=== PATIENT | male | born 1955 | race African-American/Black ===

== ENCOUNTER 2017-02-06 15:29 | Emergency (ER) | payer MEDICAID, OTHER ==
[~2017-02-06] VITALS: Ht 170.2 cm; Wt 70.0 kg
[2017-02-06 23:30] VITALS: BP 118/72
== END 2017-02-06 23:47 | disposition home or self-care (01) ==
LOC: ER 15:46
DX: S82.832A Other fracture of upper and lower end of left fibula, initial encounter for closed fracture (principal); S09.90XA Unspecified injury of head, initial encounter; M25.562 Pain in left knee; I10 Essential (primary) hypertension; J45.909 Unspecified asthma, uncomplicated; F12.10 Cannabis abuse, uncomplicated; W05.0XXA Fall from non-moving wheelchair, initial encounter; Y93.89 Activity, other specified; Y92.89 Other specified places as the place of occurrence of the external cause; Y99.8 Other external cause status
CPT/HCPCS: 29515; 70450; 73562; 73610; 99284; Z7610

== ENCOUNTER 2017-04-28 04:44 | Emergency (ER) | payer MEDICAID ==
[~2017-04-28] VITALS: Ht 182.9 cm; Wt 95.0 kg
[~2017-04-28 04:44] MED LIST: AMLO10TA80 PO; LACT10SO7 PO
[2017-04-28] MEDS ORDERED: ACETAMINOPHEN 325MG TABLET PO ONE (08:30)
[2017-04-28 10:12] LABS: CLARITY URINE CLEAR (CLEAR); COLOR URINE DARK YELLOW (YELLOW); KETONES URINE TRACE (NEGATIVE); LEUKOCYTE ESTERASE URINE NEGATIVE (NEGATIVE); NITRITE URINE NEGATIVE (NEGATIVE); OCCULT BLOOD URINE NEGATIVE (NEGATIVE); PH URINE 5.5 (4.5-8.0); PROTEIN URINE NEGATIVE (NEGATIVE)
[2017-04-28 10:37] LABS: *AMPHETAMINES SCREEN URINE NEGATIVE (NEGATIVE); *BARBITURATES SCREEN URINE NEGATIVE (NEGATIVE); *BENZODIAZEPINES SCREEN URINE NEGATIVE (NEGATIVE); *COCAINE SCREEN URINE PRESUMTIVE POSITIVE (NEGATIVE); CANNABINOID URINE SCREEN NEGATIVE (NEGATIVE); METHADONE URINE SCREEN NEGATIVE (NEGATIVE); OPIATES URINE SCREEN NEGATIVE (NEGATIVE); PHENCYCLIDINE URINE SCREEN NEGATIVE (NEGATIVE)
[2017-04-28 18:03] VITALS: BP 109/49
== END 2017-04-28 18:05 | disposition home or self-care (01) ==
LOC: ER 04:44
DX: M79.1 Myalgia (principal); F10.20 Alcohol dependence, uncomplicated; Y90.0 Blood alcohol level of less than 20 mg/100 ml; E11.9 Type 2 diabetes mellitus without complications; I10 Essential (primary) hypertension; J45.909 Unspecified asthma, uncomplicated
CPT/HCPCS: 36415; 80305; 81003; 99284; G0482

== ENCOUNTER 2017-05-09 14:12 | Emergency (ER) | payer MEDICAID ==
[~2017-05-09] VITALS: Ht 172.7 cm; Wt 90.0 kg
[2017-05-09 16:08] VITALS: BP 129/74
[2017-05-09] MEDS ORDERED: ALBUTEROL (0.083%) 2.5MG/3ML NEB HHN STA (17:57)
== END 2017-05-09 20:13 | disposition home or self-care (01) ==
LOC: ER 14:39
DX: J06.9 Acute upper respiratory infection, unspecified (principal); I10 Essential (primary) hypertension; J45.909 Unspecified asthma, uncomplicated; Z59.0 Homelessness
CPT/HCPCS: 71045; 94640; 99283; J7611; Z7610

== ENCOUNTER 2017-11-27 18:10 | Inpatient (IN) | payer MEDICAID ==
[~2017-11-27] VITALS: Ht 182.9 cm; Wt 121.3 kg
[2017-11-27] MEDS ORDERED: KETOROLAC 30MG/ML VIAL IV STA (19:20)
[2017-11-27] MEDS ORDERED: ONDANSETRON HCL 4MG/2ML INJ IV STA (19:20)
[2017-11-27] MEDS ORDERED: MORPHINE SULFATE 4 MG/ML CPJ (NOT FOR IM USE) IV STA (19:20)
[2017-11-27] MEDS ORDERED: SODIUM CHLORIDE 0.9% 1,000 ML IV ONE (19:20)
[2017-11-27 19:44] LABS: BASOPHILS % 1.3 % (0.0-2.0); HEMATOCRIT. 32.6 % (42.0-52.0); HEMOGLOBIN. 11.3 g/dL (14.0-18.0); LYMPHOCYTES % 19.3 % (20.0-50.0); MEAN CORPUSCULAR HEMOGLOBIN 37.6 pg (28.0-32.0); MEAN CORPUSCULAR VOLUME 108.6 fL (80.0-94.0); MEAN PLATELET VOLUME 8.9 fl (7.4-10.4); MONOCYTES % 11.8 % (2.0-8.0); NEUTROPHILS % 65.6 % (40.0-76.0); RED CELL DISTRIBUTION WIDTH 19.9 % (11.6-14.6)
[2017-11-27 19:50] LABS: CHLORIDE 101 mEq/L (98-107)
[2017-11-27 19:52] LABS: INR 2.2; PARTIAL THROMBOPLASTIN TIME 43.3 sec (23.4-31.0); PROTHROMBIN TIME 22.1 sec (9.1-11.1)
[2017-11-27 19:55] LABS: ETHANOL BLOOD 32 mg/dL
[2017-11-27 20:08] LABS: PLATELET 74 x1000/uL (130-400)
[2017-11-28] VITALS (9 sets, daily range): BP systolic 110–148; BP diastolic 55–85
[2017-11-28 00:55] LABS: CLARITY URINE CLEAR (CLEAR); COLOR URINE DARK YELLOW (YELLOW); KETONES URINE TRACE (NEGATIVE); LEUKOCYTE ESTERASE URINE TRACE (NEGATIVE); NITRITE URINE POSITIVE (NEGATIVE); OCCULT BLOOD URINE NEGATIVE (NEGATIVE); PROTEIN URINE NEGATIVE (NEGATIVE); SPECIFIC GRAVITY URINE 1.026 (1.005-1.030)
[2017-11-28 01:07] LABS: CANNABINOID URINE SCREEN NEGATIVE (NEGATIVE); PHENCYCLIDINE URINE SCREEN NEGATIVE (NEGATIVE)
[2017-11-28 01:08] LABS: *AMPHETAMINES SCREEN URINE NEGATIVE (NEGATIVE); *BARBITURATES SCREEN URINE NEGATIVE (NEGATIVE); *COCAINE SCREEN URINE NEGATIVE (NEGATIVE); METHADONE URINE SCREEN NEGATIVE (NEGATIVE); OPIATES URINE SCREEN PRESUMTIVE POSITIVE (NEGATIVE)
[2017-11-28 01:14] LABS: *BENZODIAZEPINES SCREEN URINE NEGATIVE (NEGATIVE)
[2017-11-28] MEDS ORDERED: LORAZEPAM 2MG/ML CPJ IV PRN (05:00)
[2017-11-28] MEDS ORDERED: ACETAMINOPHEN 325MG TABLET PO PRN (05:00)
[2017-11-28] MEDS ORDERED: OMEPRAZOLE 20MG CAPSULE EXTENDED RELEASE PO SCH (07:10)
[2017-11-28] MEDS ORDERED: CLINDAMYCIN 600 MG in DEXTROSE 5% WATER 50 ML IV SCH (08:00)
[2017-11-28] MEDS: MULTIVITAMINS,THER W-MINERALS TABLET PO SCH (09:31)
[2017-11-28] MEDS: THIAMINE HCL 100MG TABLET PO SCH (09:31)
[2017-11-28] MEDS: FOLIC ACID/VITAMIN B COMP W-C TABLET PO SCH (09:31)
[2017-11-28] MEDS: FUROSEMIDE 40MG/4ML VIAL IVP SCH ×2 (09:31→21:11)
[2017-11-28] MEDS: SPIRONOLACTONE 100MG TABLET PO SCH (09:31)
[2017-11-28 10:51] LABS: HEMATOCRIT. 31.5 % (42.0-52.0); MEAN CORPUSCULAR HEMOGLOBIN 38.3 pg (28.0-32.0); MEAN CORPUSCULAR VOLUME 109.2 fL (80.0-94.0); RED BLOOD CELL COUNT 2.88 mill/uL (4.7-6.1); RED CELL DISTRIBUTION WIDTH 20.3 % (11.6-14.6)
[2017-11-28 13:11] LABS: PLATELET ESTIMATE DECREASED
[2017-11-28 13:13] LABS: PLATELET 80 x1000/uL (130-400)
[2017-11-28 13:46] LABS: CHLORIDE 103 mEq/L (98-107)
[2017-11-28] MEDS: CLINDAMYCIN 600MG PREMIX 50 ML IV SCH ×2 (15:51→21:11)
[2017-11-28 22:48] LABS: BG BASE EXCESS -9.2 mmol/L (-2.0-2.0); BG CARBOXYHEMOGLOBIN 0.9 % (0.5-1.5); BG DEOXYHEMOGLOBIN 4.2 % (0.0-5.0); BG FRACTION INSPIRED OXYGEN 28; BG HCO3 ACT 12.3 mmol/L (22.0-26.0); BG METHEMOGLOBIN 0.3 % (0.0-1.5); BG OXYGEN SATURATION 95.7 % (92.0-98.5); BG OXYHEMOGLOBIN 94.6 % (94.0-97.0); BG PCO2 17.5 mmHg (35.0-45.0); BG PH 7.464 (7.350-7.450); BG PO2 82.6 mmHg (75.0-100.0); BG SAMPLE SITE RIGHT RADIAL; BG TOTAL HEMOGLOBIN 11.4 g/dL (12.0-18.0); BG VENT MODE NASAL CANNULA
[2017-11-28] MEDS ORDERED: FAMOTIDINE 20MG/2ML VIAL IV SCH (23:00)
[2017-11-29] VITALS (73 sets, daily range): BP systolic 48–177; BP diastolic 23–106
[2017-11-29] MEDS ORDERED: CEFTRIAXONE 1 G PREMIX 50 ML IV SCH
[2017-11-29] MEDS: PANTOPRAZOLE 80 MG in SODIUM CHLORIDE 0.9% 100 ML IV SCH ×2 (00:06→09:34)
[2017-11-29] MEDS: IPRATROPIUM/ALBUTEROL 0.5-3(2.5)MG/3ML NEB HHN SCH ×5 (00:35→16:01)
[2017-11-29 01:46] LABS: AMMONIA 83 uMol/L (<32)
[2017-11-29] MEDS ORDERED: ACETAMINOPHEN 650MG SUPP PR PRN (04:00)
[2017-11-29 04:08] LABS: BG BASE EXCESS -18.9 mmol/L (-2.0-2.0); BG CARBOXYHEMOGLOBIN 0.2 % (0.5-1.5); BG DEOXYHEMOGLOBIN 0.4 % (0.0-5.0); BG FRACTION INSPIRED OXYGEN 100; BG HCO3 ACT 10.2 mmol/L (22.0-26.0); BG METHEMOGLOBIN 0.6 % (0.0-1.5); BG OXYGEN SATURATION 99.6 % (92.0-98.5); BG OXYHEMOGLOBIN 98.8 % (94.0-97.0); BG PCO2 35.7 mmHg (35.0-45.0); BG PH 7.073 (7.350-7.450); BG PO2 315.6 mmHg (75.0-100.0); BG SAMPLE SITE RIGHT RADIAL; BG TOTAL HEMOGLOBIN 11.5 g/dL (12.0-18.0); BG VENT MODE MASK - NRB
[2017-11-29] MEDS: LACTULOSE 20G/30ML UDC PO SCH ×2 (05:04→12:30)
[2017-11-29 05:11] LABS: BG BASE EXCESS -15.9 mmol/L (-2.0-2.0); BG CARBOXYHEMOGLOBIN 0.3 % (0.5-1.5); BG DEOXYHEMOGLOBIN 9.5 % (0.0-5.0); BG FRACTION INSPIRED OXYGEN 36; BG HCO3 ACT 11.5 mmol/L (22.0-26.0); BG METHEMOGLOBIN 0.5 % (0.0-1.5); BG OXYGEN SATURATION 90.4 % (92.0-98.5); BG OXYHEMOGLOBIN 89.7 % (94.0-97.0); BG PCO2 32.6 mmHg (35.0-45.0); BG PH 7.165 (7.350-7.450); BG SAMPLE SITE RIGHT RADIAL; BG TOTAL HEMOGLOBIN 10.3 g/dL (12.0-18.0); BG VENT MODE NASAL CANNULA
[2017-11-29] MEDS ORDERED: DEXTROSE 50% WATER 50ML SYRINGE IV ONE ×3 (05:11→14:07)
[2017-11-29] MEDS ORDERED: DEXTROSE 50% WATER 50ML SYRINGE IV PRN (05:15)
[2017-11-29] MEDS: SODIUM BICARBONATE 8.4% 1 MEQ/ML 50ML SYR IV SCH ×2 (05:41→05:43)
[2017-11-29] MEDS ORDERED: NOREPINEPHRINE 8 MG in DEXT 5% WATER 242 ML IV PRN (06:00)
[2017-11-29] MEDS: CLINDAMYCIN 600MG PREMIX 50 ML IV SCH ×2 (06:00→14:58)
[2017-11-29] MEDS: SODIUM BICARBONATE 100 MEQ in DEXTROSE 5% WATER 1,000 ML IV SCH ×3 (06:00→15:58)
[2017-11-29] MEDS ORDERED: LORAZEPAM 2MG/ML CPJ ONE (07:38)
[2017-11-29] MEDS ORDERED: PROPOFOL 10MG/ML 100ML 100 ML IV PRN (07:45)
[2017-11-29] MEDS ORDERED: LORAZEPAM 2MG/ML CPJ IV ONE (08:00)
[2017-11-29 08:22] LABS: BG BASE EXCESS -21.4 mmol/L (-2.0-2.0); BG CARBOXYHEMOGLOBIN 0.3 % (0.5-1.5); BG DEOXYHEMOGLOBIN 5.5 % (0.0-5.0); BG FRACTION INSPIRED OXYGEN 100; BG HCO3 ACT 10.3 mmol/L (22.0-26.0); BG METHEMOGLOBIN 0.1 % (0.0-1.5); BG OXYGEN SATURATION 94.5 % (92.0-98.5); BG OXYHEMOGLOBIN 94.1 % (94.0-97.0); BG PCO2 50.3 mmHg (35.0-45.0); BG SAMPLE SITE LEFT BRACHIAL; BG TIDAL VOLUME(mL) 600 mL; BG TOTAL HEMOGLOBIN 10.1 g/dL (12.0-18.0); BG VENT MODE VENT - A/C; BG VENT RATE 12 set
[2017-11-29] MEDS ORDERED: PHENYLEPHRINE 20 MG in DEXT 5% WATER 248 ML IV PRN (08:30)
[2017-11-29] MEDS: FUROSEMIDE 40MG/4ML VIAL IVP SCH (09:00)
[2017-11-29] MEDS ORDERED: SODIUM BICARBONATE 8.4% 1 MEQ/ML 50ML SYR IV NR (09:00)
[2017-11-29] MEDS: THIAMINE HCL 100MG TABLET PO SCH (09:00)
[2017-11-29] MEDS ORDERED: OCTREOTIDE 1,000 MCG in SODIUM CHLORIDE 0.9% 98 ML IV SCH (09:00)
[2017-11-29] MEDS: FOLIC ACID/VITAMIN B COMP W-C TABLET PO SCH (09:00)
[2017-11-29] MEDS: SPIRONOLACTONE 100MG TABLET PO SCH (09:00)
[2017-11-29] MEDS: MULTIVITAMINS,THER W-MINERALS TABLET PO SCH (09:00)
[2017-11-29] MEDS ORDERED: OCTREOTIDE ACETATE 50 MCG/ML 1ML IV NR (09:00)
[2017-11-29] MEDS: VASOPRESSIN 10 UNIT in SODIUM CHLORIDE 0.9% 99.5 ML IV PRN ×2 (09:40→13:48)
[2017-11-29 09:54] LABS: HEMOGLOBIN. 9.1 g/dL (14.0-18.0); MEAN CORPUSCULAR HEMOGLOBIN 38.9 pg (28.0-32.0); MEAN CORPUSCULAR VOLUME 115.1 fL (80.0-94.0); RED BLOOD CELL COUNT 2.34 mill/uL (4.7-6.1)
[2017-11-29 10:07] LABS: INR 3.7; PROTHROMBIN TIME 36.8 sec (9.1-11.1)
[2017-11-29 10:34] LABS: BG BASE EXCESS -14.8 mmol/L (-2.0-2.0); BG CARBOXYHEMOGLOBIN 0.2 % (0.5-1.5); BG DEOXYHEMOGLOBIN 6.3 % (0.0-5.0); BG FRACTION INSPIRED OXYGEN 100; BG HCO3 ACT 15.1 mmol/L (22.0-26.0); BG METHEMOGLOBIN 0.5 % (0.0-1.5); BG OXYGEN SATURATION 93.7 % (92.0-98.5); BG PCO2 54.1 mmHg (35.0-45.0); BG PH 7.064 (7.350-7.450); BG PO2 92.4 mmHg (75.0-100.0); BG SAMPLE SITE RIGHT BRACHIAL; BG TIDAL VOLUME(mL) 500 mL; BG TOTAL HEMOGLOBIN 10.4 g/dL (12.0-18.0); BG VENT MODE VENT - A/C; BG VENT RATE 24 set
[2017-11-29] MEDS: PHENYLEPHRINE 40 MG in DEXT 5% WATER 246 ML IV PRN ×2 (11:01→13:48)
[2017-11-29] MEDS ORDERED: NOREPINEPHRINE 32 MG in DEXT 5% WATER 468 ML IV PRN (11:30)
[2017-11-29] MEDS ORDERED: ALBUMIN HUMAN 25GM/100ML (25%) IV ONE (12:15)
[2017-11-29 12:42] LABS: PLATELET 19 x1000/uL (130-400)
[2017-11-29 12:47] LABS: NUCLEATED RED BLOOD CELLS 22 /100 WBC
[2017-11-29 12:50] LABS: PLATELET ESTIMATE DECREASED
[2017-11-29] MEDS ORDERED: SODIUM BICARBONATE 7.5% 0.9 MEQ/ML 50ML SYR IV ONE ×2 (13:35→14:07)
[2017-11-29] MEDS ORDERED: EPINEPHRINE 0.1MG/ML (1:10,000) 10ML SYR ONE ×2 (13:35→14:07)
[2017-11-29] MEDS ORDERED: CALCIUM CHLORIDE 1GM/10ML SYR IV ONE (14:07)
[2017-11-29 15:44] LABS: BG BASE EXCESS -16.4 mmol/L (-2.0-2.0); BG CARBOXYHEMOGLOBIN 0.4 % (0.5-1.5); BG DEOXYHEMOGLOBIN 26.3 % (0.0-5.0); BG FRACTION INSPIRED OXYGEN 100; BG HCO3 ACT 13.2 mmol/L (22.0-26.0); BG METHEMOGLOBIN 0.3 % (0.0-1.5); BG OXYGEN SATURATION 73.5 % (92.0-98.5); BG PCO2 48.6 mmHg (35.0-45.0); BG PH 7.051 (7.350-7.450); BG PO2 51.7 mmHg (75.0-100.0); BG SAMPLE SITE RIGHT BRACHIAL; BG TIDAL VOLUME(mL) 600 mL; BG TOTAL HEMOGLOBIN 8.9 g/dL (12.0-18.0); BG VENT MODE VENT - A/C; BG VENT RATE 24 set
== END 2017-11-29 16:30 | disposition expired | DRG 720 ==
LOC: ER 18:47 → 8WST 11-28 → EDBEDREQ 11-28 00:06 → EDBEDREQTM 11-28 00:06 → ENRESERV 11-28 02:28 → 3WST 11-29 02:57 → MICUSO 11-29 07:10
PROVIDERS: ADMIT Internal Medicine; ATTEND Internal Medicine
PROC: 5A12012 Performance of Cardiac Output, Single, Manual (ICD-10-PCS; principal; 2017-11-28)
PROC: 05H633Z Insertion of Infusion Device into Left Subclavian Vein, Percutaneous Approach (ICD-10-PCS; 2017-11-29)
PROC: B547ZZA Ultrasonography of Left Subclavian Vein, Guidance (ICD-10-PCS; 2017-11-29)
DX: A41.50 Gram-negative sepsis, unspecified (principal); J96.00 Acute respiratory failure, unspecified whether with hypoxia or hypercapnia; I46.9 Cardiac arrest, cause unspecified; R57.9 Shock, unspecified; D61.818 Other pancytopenia; E87.2 Acidosis; K92.2 Gastrointestinal hemorrhage, unspecified; E46 Unspecified protein-calorie malnutrition; G92 Toxic encephalopathy; I11.0 Hypertensive heart disease with heart failure; I50.9 Heart failure, unspecified; D53.9 Nutritional anemia, unspecified; E16.2 Hypoglycemia, unspecified; J45.909 Unspecified asthma, uncomplicated; K76.0 Fatty (change of) liver, not elsewhere classified; K70.31 Alcoholic cirrhosis of liver with ascites; E86.0 Dehydration; E86.1 Hypovolemia; F43.10 Post-traumatic stress disorder, unspecified; N39.0 Urinary tract infection, site not specified; R32 Unspecified urinary incontinence; R56.9 Unspecified convulsions; Z87.891 Personal history of nicotine dependence; Z91.19 Patient's noncompliance with other medical treatment and regimen; Z79.899 Other long term (current) drug therapy
CPT/HCPCS: 36415; 36569; 36600; 71045; 76700; 76937; 80048; 80053; 80305; 81003; 82140; 82375; 82805; 82962; 83605; 83880; 84484; 85025; 85049; 85610; 85730; 86850; 86900; 87040; 87077; 87186; 92610; 93005; 93970; 94640; 96361; 96374; 96375; 99285; C1725; C9113; G0482; J0696; J1885; J1940; J2060; J2270; J2354; J2370; J2405; J2704; J3490; J7030; J7040; J7050; J7060; J7070; J7620; P9034; P9047